=== PATIENT | male | born 1990 | race Two or more races ===

== ENCOUNTER 2018-06-24 22:55 | Emergency (ER) | payer SELFPAY ==
[~2018-06-24] VITALS: Ht 175.3 cm; Wt 67.6 kg
[2018-06-24 23:04] VITALS: BP 117/82
--- NOTE | 2018-06-25 03:38 | NUR ---
ASSUMED CARE OF PT AT DISCHARGE. PT STATES HE DOES NOT REMEMBER HOW HE GOT TO [facility]. PT REQUESTS TO KNOW THE LOCATION OF WHERE HE WAS PICKED UP FROM. PT WAS PROVIDED WITH RESOURCES AND PT STATES HE HAS MADE A CALL TO A FRIEND TO PICK HIM UP.
--- NOTE | 2018-06-25 03:39 | NUR ---
Patient discharged to home in stable condition. Written and verbal after care instructions given. Patient verbalizes understanding of instruction. PT AMBULATED OUT WITH STEADY GAIT NOTED.
== END 2018-06-25 03:53 | disposition home or self-care (01) ==
LOC: ER 22:57
DX: F10.129 Alcohol abuse with intoxication, unspecified (principal); Y90.9 Presence of alcohol in blood, level not specified
CPT/HCPCS: 82962-TC